=== PATIENT | female | born 1990 | race African-American/Black ===

== ENCOUNTER 2016-07-06 17:17 | Emergency (ER) | payer SELFPAY ==
[~2016-07-06] VITALS: Ht 162.6 cm; Wt 65.0 kg
[~2016-07-06 17:17] MED LIST: AMOXICILLIN500 M1 OR; AMOXICILLIN500 MG OR; AMOXICILLIN500 MG PO; BACTRIM DS1 TAB PO; BENADRYL1 CRE EX; DEPO-PROVER150 MG/ML IM; DIFLUCAN150 MG PO; FLEXERIL PO; LORTAB 5/3255 MG PO; MACRODANTIN100 MG PO; MEDDOSEPAK PO; NAPROSYN500 MG PO; NO HOME MEDS; PERIDEX0.12 % MT; PRENATAL1 TA1 PO; PRENATAL1 TAB OR; TRAMADOL HCL50 MG PO; ULTRAM50 M1 OR; ULTRAM50 M1 PO; ZITHROMAX500 MG PO; ZOFRAN4 MG OR
[2016-07-06] MEDS ORDERED: PYRIDIUM200 MG PO (17:48)
[2016-07-06] MEDS ORDERED: CIPROFLOXACN500 MG PO (17:48)
[2016-07-06 17:54] LABS: URINE BILIRUBIN - DIPSTICK NEGATIVE (NEGATIVE); URINE BLOOD DIPSTICK NEGATIVE (NEGATIVE); URINE CLARITY CLEAR; URINE COLOR YELLOW; URINE GLUCOSE - DIPSTICK NEGATIVE (NEGATIVE); URINE KETONE NEGATIVE (NEGATIVE); URINE LEUK ESTERASE NEGATIVE (NEGATIVE); URINE NITRITE - DIPSTICK NEGATIVE (Negative); URINE PROTEIN - DIPSTICK TRACE mg/dL (NEG-TRACE)
[2016-07-06 17:57] VITALS: BP 131/77
== END 2016-07-06 17:57 | disposition home or self-care (01) | DRG 690 ==
LOC: ED 17:17
PROVIDERS: Emergency Medicine
DX: N39.0 Urinary tract infection, site not specified (principal)

== ENCOUNTER 2016-08-22 13:18 | Emergency (ER) | payer SELFPAY ==
[~2016-08-22] VITALS: Ht 162.6 cm; Wt 59.1 kg
[~2016-08-22 13:18] MED LIST changes: +CIPROFLOXACN500 MG PO; +PYRIDIUM200 MG PO
[2016-08-22] MEDS ORDERED: DEPO-PROVER150 MG/M1 IM (13:32)
[2016-08-22 14:03] LABS: HEMATOCRIT 35.5 % (37.0-47.0); HEMOGLOBIN 11.6 g/dl (12.0-16.0); IMMATURE GRANULOCYTES 0.2 % (0.0-1.0); MEAN CELL VOLUME 85.5 fL CALC (80.0-100.0); MEAN CORPUSCULAR HGB CONC 32.7 g/L CALC (32.0-36.0); NEUT# 3.43 thou/uL (2.00-7.15); RED BLOOD COUNT 4.15 mill/uL (4.20-5.60); RED CELL DISTRI WIDTH 13.2 % (11.5-15.5)
[2016-08-22 14:08] LABS: ALBUMIN 4.5 g/dL (3.2-5.0); ALKALINE PHOSPHATASE 48 u/l (38-126); ANION GAP 14 (6-22 (CALC)); BILIRUBIN, TOTAL 0.7 mg/dL (0.0-1.4); BUN 10 mg/dL (7-17); BUN/CREATININE RATIO 15 (12-20 (CALC)); CALCIUM 9.2 mg/dL (8.4-10.2); CARBON DIOXIDE 27 mmol/l (22-30); CHLORIDE 106 mmol/l (95-108); CREATININE 0.7 mg/dL (0.5-1.0); GFR > 60 ML/MIN (>=60 (CALC)); GFR FOR AFR.AMER. > 60 ML/MIN (>=60 (CALC)); GLUCOSE 91 mg/dL (65-105); POTASSIUM 3.8 mmol/l (3.5-5.1); SGOT/AST 18 u/l (14-36); SGPT/ALT 22 u/l (9-52); SODIUM 144 mmol/l (137-146); TOTAL PROTEIN 8.2 g/dL (6.3-8.2)
[2016-08-22 14:20] LABS: MYOGLOBIN 18 ng/mL (0 - 62)
[2016-08-22] MEDS ORDERED: IBUPROFEN600 MG PO (15:22)
[2016-08-22 15:38] VITALS: BP 134/96
== END 2016-08-22 15:46 | disposition home or self-care (01) | DRG 313 ==
LOC: ED 13:18
PROVIDERS: Emergency Medicine
DX: R07.89 Other chest pain (principal); R42 Dizziness and giddiness; R06.02 Shortness of breath

== ENCOUNTER 2017-03-25 14:15 | Emergency (ER) | payer SELFPAY ==
[~2017-03-25] VITALS: Ht 162.6 cm; Wt 66.0 kg
[~2017-03-25 14:15] MED LIST changes: +DEPO-PROVER150 MG/M1 IM; +IBUPROFEN600 MG PO
[2017-03-25] MEDS ORDERED: GENTAMICIN15 ML/BTL OD (14:46)
[2017-03-25] MEDS ORDERED: (None)3.5 GM OD (14:46)
[2017-03-25 14:55] VITALS: BP 123/84
[2017-03-25] MEDS ORDERED: AMOXICILLIN500 MG PO (14:57)
== END 2017-03-25 14:55 | disposition home or self-care (01) | DRG 125 ==
LOC: ED 14:15
DX: H10.9 Unspecified conjunctivitis (principal); K04.7 Periapical abscess without sinus

== ENCOUNTER 2017-10-23 14:19 | Emergency (ER) | payer OTHER ==
[~2017-10-23] VITALS: Ht 162.6 cm; Wt 70.0 kg
[~2017-10-23 14:19] MED LIST changes: +(None)3.5 GM OD; +GENTAMICIN15 ML/BTL OD
[2017-10-23] MEDS ORDERED: VOLTAREN3% GEL TOP (14:26)
[2017-10-23] MEDS ORDERED: FLEXERIL5 MG PO (14:26)
[2017-10-23] MEDS ORDERED: NAPROSYN250 MG PO (14:27)
[2017-10-23 15:28] LABS: HEMATOCRIT 35.5 % (37.0-47.0); HEMOGLOBIN 11.4 g/dl (12.0-16.0); IMMATURE GRANULOCYTES 0.2 % (0.0-5.0); MEAN CORPUSCULAR HGB 27.9 pG CALC (26.0-32.0); MEAN CORPUSCULAR HGB CONC 32.1 g/L CALC (32.0-36.0); NEUT# 5.44 thou/uL (2.00-7.15); RED BLOOD COUNT 4.08 mill/uL (4.20-5.60); RED CELL DISTRI WIDTH 13.2 % (11.5-15.5)
[2017-10-23 15:42] LABS: ALKALINE PHOSPHATASE 57 u/l (38-126); ANION GAP 12 (6-22 (CALC)); BILIRUBIN, TOTAL 0.3 mg/dL (0.0-1.4); BUN 8 mg/dL (7-17); BUN/CREATININE RATIO 16 (12-20 (CALC)); CARBON DIOXIDE 28 mmol/l (22-30); CHLORIDE 106 mmol/l (95-108); CREATININE 0.5 mg/dL (0.5-1.0); GFR > 60 ML/MIN (>=60 (CALC)); GFR FOR AFR.AMER. > 60 ML/MIN (>=60 (CALC)); POTASSIUM 3.7 mmol/l (3.5-5.1); SGOT/AST 15 u/l (14-36); SGPT/ALT 20 u/l (9-52); SODIUM 143 mmol/l (137-146); TOTAL PROTEIN 7.7 g/dL (6.3-8.2)
[2017-10-23] MEDS ORDERED: IBUPROFEN600 MG PO (19:28)
[2017-10-23 19:40] VITALS: BP 139/74
== END 2017-10-23 19:40 | disposition home or self-care (01) | DRG 563 ==
LOC: ED 14:19
DX: S39.011A Strain of muscle, fascia and tendon of abdomen, initial encounter (principal); X50.0XXA Overexertion from strenuous movement or load, initial encounter; Y93.F2 Activity, caregiving, lifting; Y92.89 Other specified places as the place of occurrence of the external cause; Y99.0 Civilian activity done for income or pay
CPT/HCPCS: Q9967

== ENCOUNTER 2018-02-01 18:30 | Emergency (ER) | payer SELFPAY ==
[~2018-02-01] VITALS: Ht 162.6 cm; Wt 66.0 kg
[~2018-02-01 18:30] MED LIST changes: +FLEXERIL5 MG PO; +NAPROSYN250 MG PO; +VOLTAREN3% GEL TOP
[2018-02-01] MEDS ORDERED: AMOXICILLIN875 MG PO (20:00)
[2018-02-01 20:05] VITALS: BP 123/76
[2018-02-02] MEDS ORDERED: IBUPROFEN600 MG PO (20:04)
== END 2018-02-01 20:05 | disposition home or self-care (01) | DRG 153 ==
LOC: ED 18:30
DX: J02.0 Streptococcal pharyngitis (principal)

== ENCOUNTER 2018-02-02 19:16 | Emergency (ER) | payer SELFPAY ==
[~2018-02-02] VITALS: Ht 162.6 cm; Wt 65.0 kg
[~2018-02-02 19:16] MED LIST changes: +AMOXICILLIN875 MG PO
[2018-02-02] MEDS ORDERED: IBUPROFEN600 MG PO (20:04)
[2018-02-02 20:10] VITALS: BP 139/84
== END 2018-02-02 20:10 | disposition home or self-care (01) | DRG 153 ==
LOC: ED 19:16
DX: J02.0 Streptococcal pharyngitis (principal)

== ENCOUNTER 2018-03-06 16:20 | Emergency (ER) | payer OTHER ==
[~2018-03-06] VITALS: Ht 162.6 cm; Wt 60.0 kg
[2018-03-06 18:06] LABS: HEMATOCRIT 33.6 % (37.0-47.0); HEMOGLOBIN 11.1 g/dl (12.0-16.0); IMMATURE GRANULOCYTES 0.4 % (0.0-5.0); MEAN CELL VOLUME 87.7 fL CALC (80.0-100.0); NEUT# 9.76 thou/uL (2.00-7.15); RED BLOOD COUNT 3.83 mill/uL (4.20-5.60); RED CELL DISTRI WIDTH 13.2 % (11.5-15.5)
[2018-03-06] MEDS ORDERED: AMOXICILLIN500 MG PO ×2 (18:26→18:44)
[2018-03-06 18:33] VITALS: BP 132/89
== END 2018-03-06 18:38 | disposition home or self-care (01) | DRG 153 ==
LOC: ED 16:20
PROVIDERS: Family Medicine
DX: J03.90 Acute tonsillitis, unspecified (principal)

== ENCOUNTER 2019-04-08 | Emergency (ER) | payer SELFPAY ==
[2019-04-08] MEDS ORDERED: TAM75CAP PO (19:15)
== END 2019-04-08 19:20 | disposition home or self-care (01) | DRG 153 ==
DX: J11.1 Influenza due to unidentified influenza virus with other respiratory manifestations (principal)